=== PATIENT | female | born 1995 ===

== ENCOUNTER 2018-07-23 20:56 | Emergency (ER) | payer OTHER, MEDICAID ==
[2018-07-23 21:14] VITALS: BP 116/77; PULSE 103; RESP 18; TEMP 97.9; O2SAT 97
[2018-07-23 21:54] LABS: HCG,QUALITATIVE URINE NEGATIVE (NEGATIVE)
[2018-07-23 21:58] LABS: SQUAMOUS EPITHIAL 4 /hpf (0-5)
[2018-07-23 21:59] LABS: URINE BILIRUBIN NEGATIVE (NEGATIVE); URINE BLOOD 2+ (NEGATIVE); URINE CLARITY Hazy (Clear); URINE COLOR Yellow (YELLOW); URINE GLUCOSE (UA) NORMAL (Normal); URINE LEUKOCYTE ESTERASE 3+ Leu/uL (Negative); URINE PROTEIN 1+ mg/dL (NEGATIVE); URINE UROBILINOGEN NORMAL mg/dL (0.2-1.0)
--- NOTE | 2018-07-23 22:34 | C.PDOC ---
History Of Present Illness 23 year old female presents to the ED c/o suprapibic abdominal pain and dysuria. Patient denies fever, chills, nausea, vomit, diarrhea, rash, back pain, vaginal bleeding, vaginal discharge. Time Seen by Provider: 07/23/18 21:15 Chief Complaint (Nursing): Female Genitourinary History Per: Patient History/Exam Limitations: no limitations Onset/Duration Of Symptoms: Days Current Symptoms Are (Timing): Still Present Quality Of Discomfort: Burning Associated Symptoms: Urinary Symptoms. denies: Nausea, Vomiting, Diarrhea Recent travel outside of the [place]: No Additional History Per: Patient Abnormal Vaginal Bleeding: No Past Medical History Reviewed: Historical Data, Nursing Documentation, Vital Signs Vital Signs: Last Vital Signs Temp 97.9 F 07/23/18 21:08 Pulse 103 H 07/23/18 21:08 Resp 18 07/23/18 21:08 BP 116/77 07/23/18 21:08 Pulse Ox 97 07/23/18 21:08 - Medical History PMH: No Chronic Diseases Surgical History: No Surg Hx Family History: States: Unknown Family Hx - Social History Hx Alcohol Use: Yes Hx Substance Use: No - Immunization History Hx Tetanus Toxoid Vaccination: Yes Hx Influenza Vaccination: Yes Hx Pneumococcal Vaccination: Yes Review Of Systems Constitutional: Negative for: Fever, Chills Gastrointestinal: Positive for: Abdominal Pain. Negative for: Nausea, Vomiting Genitourinary: Positive for: Dysuria, Frequency. Negative for: Vaginal Discharge, Vaginal Bleeding Musculoskeletal: Negative for: Back Pain Skin: Negative for: Rash Physical Exam - Physical Exam Appears: Non-toxic, No Acute Distress Skin: Normal Color, Warm, Dry Head: Atraumatic, Normacephalic Eye(s): bilateral: Normal Inspection Oral Mucosa: Moist Neck: Normal ROM, Supple Chest: Symmetrical Cardiovascular: Rhythm Regular Respiratory: Normal Breath Sounds, No Rales, No Rhonchi, No Wheezing Gastrointestinal/Abdominal: Soft, Tenderness (mild suprapubic), No Guarding, No Rebound Back: No CVA Tenderness Pelvic: Other (Deferred) Extremity: Normal ROM Neurological/Psych: Oriented x3, Normal Speech Gait: Steady ED Course And Treatment - Laboratory Results Lab Results: Urine Color Yellow (YELLOW) 07/23/18 21:46 Urine Clarity Hazy (Clear) 07/23/18 21:46 Urine pH 6.0 (5.0-8.0) 07/23/18 21:46 Ur Specific [place] 1.023 (1.003-1.030) 07/23/18 21:46 Urine Protein 1+ mg/dL (NEGATIVE) H 07/23/18 21:46 Urine Glucose (UA) Normal mg/dL (Normal) 07/23/18 21:46 Urine Ketones Negative mg/dL (NEGATIVE) 07/23/18 21:46 Urine Blood 2+ (NEGATIVE) H 07/23/18 21:46 Urine Nitrate Negative (NEGATIVE) 07/23/18 21:46 Urine Bilirubin Negative (NEGATIVE) 07/23/18 21:46 Urine Urobilinogen Normal mg/dL (0.2-1.0) 07/23/18 21:46 Ur Leukocyte Esterase 3+ [place]/uL (Negative) H 07/23/18 21:46 Urine WBC (Auto) 474 /hpf (0-5) H 07/23/18 21:46 Urine RBC (Auto) 227 /hpf (0-3) H 07/23/18 21:46 Ur Squamous Epith Cells 4 /hpf (0-5) 07/23/18 21:46 Urine HCG, Qual Negative (NEGATIVE) 07/23/18 21:46 Urine HCG, Qual Negative (NEGATIVE) 07/23/18 21:46 O2 Sat by Pulse Oximetry: 97 (ON RA) Pulse Ox Interpretation: Normal Progress Note: Plan: - UA. - Macrobid 100 mg PO. - Pyridium 100 mg PO. UA reviewed showed UTI. Patient prescribed antibiotics to take and complete at home. Return precautions discussed and patient advised to follow up with PMD. Disposition Counseled Patient/Family Regarding: Diagnosis, Need For Followup, Rx Given - Disposition Referrals: [facility] [Outside] Disposition: HOME/ ROUTINE Disposition Time: 22:32 Condition: STABLE Additional Instructions: Please follow up with PMD Increase PO fluids Take medications as directed Return to ER if worse Prescriptions: Nitrofurantoin Macrocrystals [Macrobid] 1 cap PO BID #14 cap Phenazopyridine HCl [Pyridium] 100 mg PO TID #6 tab Instructions: Urinary Tract Infection, Adult (DC) Forms: [employer] (Telugu) - Clinical Impression Clinical Impression: UTI (urinary tract infection) - PA / BOND ANALYST / Resident Statement MD/DO has reviewed & agrees with the documentation as recorded. - Scribe Statement The provider has reviewed the documentation as recorded by the Scribe Niels Gómez All medical record entries made by the Scribe were at my direction and personally dictated by me. I have reviewed the chart and agree that the record accurately reflects my personal performance of the history, physical exam, medical decision making, and the department course for this patient. I have also personally directed, reviewed, and agree with the discharge instructions and disposition.
== END 2018-07-23 22:56 | disposition home or self-care (01) ==
LOC: C.ER 20:56
DX: N39.0 Urinary tract infection, site not specified (principal)

== ENCOUNTER 2018-09-07 13:21 | Emergency (ER) | payer OTHER, MEDICAID ==
[2018-09-07 13:34] VITALS: BMI 36.0
[2018-09-07 13:36] VITALS: BP 106/70; PULSE 81; RESP 20; TEMP 98.7; O2SAT 97
--- NOTE | 2018-09-07 14:50 | C.PDOC ---
History Of Present Illness 23 year old female presents to ED with complaint of pain to the right foot at the first MTP joint that began today. [place] and experienced no pain at the time or yesterday. Patient was wearing sandals and also sustained a small abrasion to her right foot. She denies active bleeding, discharge, weakness, or numbness. Time Seen by Provider: 09/07/18 13:52 Chief Complaint (Nursing): Lower Extremity Problem/Injury History Per: Patient History/Exam Limitations: no limitations Onset/Duration Of Symptoms: Hrs Current Symptoms Are (Timing): Still Present - Ankle/Foot Description Of Injury: Fell Past Medical History Reviewed: Historical Data, Nursing Documentation, Vital Signs Vital Signs: Last Vital Signs Temp 98.7 F 09/07/18 13:34 Pulse 81 09/07/18 13:34 Resp 20 09/07/18 13:34 BP 106/70 09/07/18 13:34 Pulse Ox 97 09/07/18 13:34 Primary Care Provider: Non [facility] Provider, - Medical History PMH: No Chronic Diseases Surgical History: No Surg Hx Family History: States: Unknown Family Hx - Social History Hx Alcohol Use: No Hx Substance Use: No - Immunization History Hx Tetanus Toxoid Vaccination: No Hx Influenza Vaccination: No Hx Pneumococcal Vaccination: No Review Of Systems Constitutional: Negative for: Fever, Chills, Weakness Musculoskeletal: Positive for: Foot Pain (right foot), Other (abrasion to right foot) Skin: Negative for: Rash, Lesions Neurological: Negative for: Weakness, Numbness Physical Exam - Physical Exam Appears: Non-toxic, No Acute Distress, Other (morbidly obese female) Skin: Normal Color, Warm, Dry Head: Atraumatic, Normacephalic Neck: Normal ROM, Supple Chest: Symmetrical, No Deformity Extremity: Normal ROM, No Tenderness, Capillary Refill (<2 seconds), No Deformity, No Swelling, Other (minor abrasion to the right 1st MTP; minor surrounding erythema) Pulses: Left Dorsalis Pedis: Normal, Right Dorsalis Pedis: Normal Neurological/Psych: Oriented x3, Normal Speech, Normal Cognition, Normal Motor, Normal Sensation Gait: Steady ED Course And Treatment O2 Sat by Pulse Oximetry: 97 (in RA) Pulse Ox Interpretation: Normal - Other Rad R foot X-Ray: Interpreted by Me (neg) Progress Note: Right foot x-ray ordered for patient. Patient given Motrin PO. Patient is resting comfortably, in no acute distress and stable for discharge. Patient advised to follow up with clinic. Patient advised to return to ED if symptoms persist or worsen. Medical Decision Making Medical Decision Making: small abrasion/blister from sandals vs sprain of 1st MTP from 2 days ago, but less likely considering 2 days pain free x-ray neg. no cellulitis to require abx Disposition Doctor Will See Patient In The: Office Counseled Patient/Family Regarding: Studies Performed, Diagnosis - Disposition Referrals: [facility] [Outside] [facility] [Outside] [facility] [Outside] [facility] [Outside] Disposition: HOME/ ROUTINE Disposition Time: 14:49 Condition: GOOD Additional Instructions: x-rays of R foot NEGATIVE continue ice packs to affeced area wash with soap and water daily motrin/Advil 400mg every 6 hours as needed. Instructions: Blisters, Sprain (DC) Forms: [employer] (Mohawk) - Clinical Impression Clinical Impression: Blister, Sprain of foot, right - Scribe Statement The provider has reviewed the documentation as recorded by the Scribe (Chelsea Russo) All medical record entries made by the Scribe were at my direction and personally dictated by me. I have reviewed the chart and agree that the record accurately reflects my personal performance of the history, physical exam, medical decision making, and the department course for this patient. I have also personally directed, reviewed, and agree with the discharge instructions and disposition.
--- NOTE | 2018-09-07 15:20 | RAD ---
Date of service: 09/07/2018 PROCEDURE: Right Foot Radiographs. HISTORY: R 1st MTP, ? sprain COMPARISON: 07/24/2015 TECHNIQUE: 3 views obtained. FINDINGS: BONES: Bone alignment and mineralization are normal. There is no acute displaced fracture or bone destruction. JOINTS: Normal. SOFT TISSUES: Normal. OTHER FINDINGS: None. IMPRESSION: No acute displaced fracture or dislocation.
== END 2018-09-07 14:55 | disposition home or self-care (01) ==
LOC: C.ER 13:21
DX: S93.601A Unspecified sprain of right foot, initial encounter (principal); S90.421A Blister (nonthermal), right great toe, initial encounter; W01.0XXA Fall on same level from slipping, tripping and stumbling without subsequent striking against object, initial encounter; Y92.832 Beach as the place of occurrence of the external cause